=== PATIENT | female | born 1960 | race Caucasian/White ===

== ENCOUNTER 2018-01-21 12:22 | Emergency (ER) | payer OTHER ==
[~2018-01-21] VITALS: Ht 162.6 cm; Wt 88.7 kg
[2018-01-21 12:31] VITALS: BP 144/64
[2018-01-21] MEDS ORDERED: KETOROLAC 60 MG/2 ML VIAL IM ONE (12:40)
[2018-01-21 13:21] VITALS: BP 144/68
== END 2018-01-21 13:20 | disposition home or self-care (01) ==
LOC: MED 12:22
DX: M25.562 Pain in left knee (principal); M06.9 Rheumatoid arthritis, unspecified
CPT/HCPCS: 96372; 99283; J1885

== ENCOUNTER 2023-10-20 20:05 | Emergency (ER) | payer OTHER ==
[~2023-10-20] VITALS: Ht 160 cm; Wt 90.7 kg
[2023-10-20 20:43] VITALS: BP 141/88; PULSE 58; RESP 18; TEMP 97.8; O2SAT 97
[2023-10-20] MEDS: ACETAMINOPHEN EXTRA STRENGTH 500 MG TAB PO ONE (21:54)
[2023-10-20 22:02] LABS: BILIRUBIN,URINE NEGATIVE (NEGATIVE); BLOOD, URINE NEGATIVE (NEGATIVE); COLOR,URINE YELLOW (YELLOW); LEUKOCYTE ESTERASE ,URINE 1+ (NEGATIVE); NITRITE, URINE NEGATIVE (NEGATIVE); PROTEIN,URINE NEGATIVE (NEGATIVE); UGLUCOSE NEGATIVE (NEGATIVE); UROBILINOGEN,URINE 0.2 EU/dL (0.2 - 1)
[2023-10-20 22:03] LABS: APPEARANCE,URINE HAZY (CLEAR)
[2023-10-20 22:06] LABS: BACTERIA,URINE 1+ /HPF (None Seen); MUCUS,URINE None Seen /LPF (None Seen); RBC,URINE 0 /HPF (0-5); SQUAMOUS EPITHELIAL CELL,UR 4-10 (MOD) /LPF (0-3 (FEW)); WBC,URINE 0-5 /HPF (0-5)
[2023-10-20] MEDS ORDERED: ACET500T99 PO (23:11)
[2023-10-20] MEDS ORDERED: CEPH-588 PO (23:11)
[2023-10-20] MEDS ORDERED: LID5T TP (23:11)
== END 2023-10-20 23:25 | disposition home or self-care (01) ==
LOC: MED 20:05
DX: S30.0XXA Contusion of lower back and pelvis, initial encounter (principal); N39.0 Urinary tract infection, site not specified; Z79.899 Other long term (current) drug therapy; V87.8XXA Person injured in other specified noncollision transport accidents involving motor vehicle (traffic), initial encounter; Y93.55 Activity, bike riding; Y92.89 Other specified places as the place of occurrence of the external cause; Y99.8 Other external cause status
CPT/HCPCS: 72220; 81001; 87086; 87186; 99284